=== PATIENT | female | born 1955 | race African-American/Black ===

== ENCOUNTER 2018-07-08 13:17 | Inpatient (IN) | payer OTHER ==
[~2018-07-08] VITALS: Ht 167.6 cm; Wt 73.5 kg
[2018-07-27] MEDS ORDERED: [UNRECOGNIZED DRUG - OTHER] (10:33)
[2018-07-27] MEDS ORDERED: LASIX40 MG PO (10:35)
[2018-07-27] MEDS ORDERED: LEVOXYL50 MCG PO (10:35)
[2018-07-27] MEDS ORDERED: LEVSIN/ANASP0.125 MG PO (10:35)
[2018-07-27] MEDS ORDERED: ALPRAZOLAM (10:36)
[2018-07-27] MEDS ORDERED: ZANAFLEX4 MG PO (10:37)
[2018-07-27] MEDS ORDERED: VITAMIN D31000 UNI2 PO (10:38)
[2018-07-27] MEDS ORDERED: OMEGA-3100 MG PO (10:38)
[2018-07-27] MEDS ORDERED: FOLATE0.4 MG PO (10:39)
[2018-07-27 12:13] LABS: CALC OSMOLALITY 281 mosm/kg (275-300); CALCIUM 8.8 mg/dL (8.5-10.1); CARBON DIOXIDE 29.5 mmol/L (21.0-32.0); CHLORIDE - SERUM 101 mmol/L (98-107); CREATININE - SERUM 0.8 mg/dL (0.6-1.3); GLUCOSE 102 mg/dL (74-106); POTASSIUM - SERUM 3.3 mmol/L (3.5-5.1); SODIUM 141 mmol/L (136-145); UREA NITROGEN 15 mg/dL (7-18); eGFR NON AFRICAN AMERICAN 77 mL/min (90-120)
[2018-07-27 12:17] LABS: BASOPHILS 0.3 % (0-2); EOSINOPHILS 0.5 % (0-7); HEMATOCRIT 38.2 % (36.0-48.0); IMMATURE GRANULOCYTES 0.3 % (0-5); LYMPHOCYTES 15.6 % (15-50); MCH 30.5 pg (26.0-34.0); MCV 89.7 fL (80.0-100.0); MONOCYTES 1.8 % (2-11); NEUTROPHILS 81.5 % (40-80); PLATELET COUNT 295 10x3/uL (130-400); RBC 4.26 10x6/uL (4.00-5.40); RDW 13.1 % (11.5-14.5); WBC 6.2 10x3/uL (4.8-10.8)
[2018-07-27 12:24] LABS: APTT 25.7 SECONDS (22.8-39.4); INR 0.98 (0.85-1.17); PROTIME 12.5 SECONDS (11.6-15.0)
[2018-07-27 12:42] LABS: APPEARANCE CLEAR (CLEAR); BILIRUBIN NEGATIVE (NEGATIVE); COLOR STRAW (YELLOW); GLUCOSE NEGATIVE (NEGATIVE); KETONE NEGATIVE (NEGATIVE); NITRITE NEGATIVE (NEGATIVE); PROTEIN NEGATIVE (NEGATIVE); UROBILINOGEN NORMAL (NORMAL)
[2018-07-27 12:45] LABS: BACTERIA FEW /hpf (NONE SEEN); EPITHELIAL CELLS 0-5 /hpf (0-5); RED CELLS - URINE NONE SEEN /hpf (0-5); WHITE CELLS - URINE 0-5 /hpf (0-5)
[2018-08-02] MEDS ORDERED: XANAX1 MG PO (07:48)
[2018-08-02 07:51] VITALS: BP 149/68; BMI 26.2
--- NOTE | 2018-08-02 10:06 | NUR ---
PLASMA BLADE SET 6/8 BOVIE PAD RIGHT THIGH [id number] EXP 09/24/19
--- NOTE | 2018-08-02 13:13 | NUR ---
RECEIVED PT FROM NIRAJ COBURN, PT IS ASLEEP AND EASILY AWAKENED TO TRANSFER TO BED IN ROOM. PT TRANSFERRED WITH MINIMAL ASSIST, NO NEEDS VOICED, WENT RIGHT BACK TO SLEEP, POST OP VITALS COMPLETED IN HOLDING, CL IN REACH BED IN LOWEST POSITION, REPORT GIVEN TO NIRAJ ANDERS
--- NOTE | 2018-08-02 18:15 | OP ---
PATIENT NAME: SHIREEN PUGA MEDICAL RECORD: [id number] :57 LOCATION:D[facility]33 ADMISSION DATE:08/02/18 SURGEON: JOSEPH TOVAR DO DATE OF OPERATION: 08/02/2018 PROCEDURE PERFORMED: Right total knee arthroplasty. PREOPERATIVE DIAGNOSES: Right knee osteoarthritis with valgus deformity. POSTOPERATIVE DIAGNOSES: Right knee osteoarthritis with valgus deformity. INDICATIONS: Ms. Puga is a 62-year-old female who has tried injections and bracing for her right knee valgus deformity. Says she was tired of dealing with the pain and collapses on her and gives her a lot of pain, especially after sitting for a long time. She was informed of the risks of surgery including infection, bleeding, damage to nerves, especially the peroneal nerve due to the valgus deformity and need for further surgery, fracture. She was informed of risk of blood clots and even , and she signed the consent. SURGEON: Joseph Tovar DO STATISTICAL MACHINE SERVICER: I was assisted by Jian Ba, advanced nurse practitioner. He assisted with closing and also holding retractors. DESCRIPTION OF PROCEDURE: The patient was given a block by anesthesia in the preoperative area and taken to the operative suite, laid in the supine position, given general anesthetic and LMA was placed. She was given 80 mg of gentamicin and a gram of Ancef preoperatively. The right lower extremity was then prepped and draped in sterile fashion. A timeout was performed. Everyone was in agreeance with the correct side, site, patient, and procedure. Incision was then marked out on the anterior knee and covered in Ioban. Then, the incision was then made down to the capsule itself with a 10-blade scalpel and the fresh 10-blade scalpel was used to do a medial parapatellar approach to the knee. The patella was then everted after some of the fat pad was removed and a part of the patella was removed with a saw, leaving 13-mm of bone, and then the knee was flexed up. Hohmanns were placed and the intramedullary canal was opened with a drill and then the distal femur. A guide was used to cut the distal femur. Once this femur was cut, the tibia was cut and the menisci were removed with the knee in extension, did not appear to have enough room for the extension block, so more distal femur was cut as well as proximal tibia. The distal femur fit well. Also, released the posterior lateral capsule off of the back of the knee, up the tibia rather this opened up well and the extension block fit very well. Once this was performed, the knee was flexed up and then the distal femur was measured to be a 65. A 4-in-1 cutting block was put on to ensure there was no notching. Once the cutting block was put on, the femur was cut. The bone was removed and then the trial was put on. The tibia was floated in, ranged and marked rotation. The patella was drilled. The lug holes were then drilled on the femur as well. The tibia was then prepared and sized to be 63. A cruciate tibia was drilled and punched, and then cement was placed on it, and then the tibia, and impacted in place. Excess cement was removed. The femur was then impacted in place with a press fit femur. Once the femur was impacted in place, the knee was brought into extension and the patella was prepared for the cement. Cement was put into the peg holes and on the patella prosthesis. This was squeezed and excess cement was removed. This was held into place. The knee was irrigated. The patient was given a gram of TXA prior to start of the case and a OPERATIVE REPORT [id number] SHIREEN PUGA at this point as well. After the knee was irrigated and bleeders were coagulated as the cement dried. Once cement dried, trialed with a 10 poly and a 12 poly, the 12 poly fit well with good extension, had good medial and lateral stability in extension and flexion. The knee was also not in valgus anymore, was straight and vancomycin powder as well as tobramycin powder and Surgicel powder was placed into the wound. The capsule was then closed with #2 Ethibond in a ytyzjp-xk-uamwa fashion and then 2-0 Vicryl in an inverted interrupted fashion on the skin. A ZipLine was placed on the skin, Adaptic, 4 x 4s, ABD, Webril, and Merlin wrap was then placed on the knee. ALTAGRACIA hose stocking placed up to the knee and the patient was awakened and taken to recovery in stable condition. Blood loss was approximately 200 mL. COMPLICATIONS: None. TRANSINT:[id number] Voice Confirmation ID: [id number] DOCUMENT ID: [id number] JOSEPH TOVAR DO at 1815 CC: UMA GARY [id number] DICTATION DATE: 08/02/18 1118 PLASTIC HOSPITAL PRODUCTS ASSEMBLER: 08/02/18 1524 ADM IN [facility] [address] [id number]
--- NOTE | 2018-08-02 18:50 | NUR ---
PATIENT IN BED WITH EYES CLOSED RESTING QUIETLY. IV INTACT. DAO INTACT. SCDS AND ALTAGRACIA ON. NO COMPLAINTS. FAMILY AT BEDSIDE. CALL LIGHT WITHIN REACH.
--- NOTE | 2018-08-02 20:20 | NUR ---
PT RESTING IN BED. ALERT AND ORIENTED. NO SIGNS OF DISTRESS. BREATHING EVEN AND UNLABORED. PT STATES NO PROBLEMS AT THIS TIME. IV SITE RT FA DRESSING CLEAN DRY AND INTACT. NO SIGNS OF INFECTION. BOWEL SOUNDS ACTIVE. SKIN CLEAN DRY AND INTACT. RT KNEE DRESSING CLEAN DRY AND INTACT. ALTAGRACIA HOSE ON RT LOWER LEG. WILL CONTINUE PLAN OF CARE. CALL LIGHT IN REACH. BED LOWERED AND LOCKED. BED RAILS UP X2.
[2018-08-02 20:38] VITALS: BMI 26.2
[2018-08-02 21:22] VITALS: BP 118/68
[2018-08-03 00:19] VITALS: BP 131/56
--- NOTE | 2018-08-03 03:03 | NUR ---
I have reviewed this patient and I concur with the Shift Assessment completed by the Licensed Practical Nurse today this shift.
--- NOTE | 2018-08-03 04:10 | NUR ---
PT STATES DILAUID IS GIVING HER HIVES. LOOKED AT PT SKIN ALL OVER NEVER MAURICIO HIVES. BUT PT STATES HER SKIN IS HOT AND SHE WANTS ME TO LET DR. TOVAR KNOW IN THE MORNING NO MORE DILAUDID. PT STATES DOES HELP WITH PAIN BUT MAKES HER HOT. WILL GIVE VISTERIL PER EMAR.
[2018-08-03 05:05] VITALS: BP 124/64
[2018-08-03 06:03] LABS: HEMATOCRIT 30.5 % (36.0-48.0); HEMOGLOBIN 9.8 g/dL (12-16); MCH 29.5 pg (26.0-34.0); MCHC 32.1 g/dL (31.0-37.0); MCV 91.9 fL (80.0-100.0); MEAN PLATELET VOLUME 8.9 fL (7.4-10.4); RBC 3.32 10x6/uL (4.00-5.40); RDW 12.9 % (11.5-14.5); WBC 8.4 10x3/uL (4.8-10.8)
[2018-08-03 10:16] VITALS: BP 157/68
[2018-08-03 12:48] VITALS: BP 159/68
--- NOTE | 2018-08-03 14:19 | NUR ---
PT RESTING IN BED. NO SIGNS OF DISTRESS. IV TO RIGHT FORARM PATENT NO REDNESS OR TENDERNESS. HAS ZOYA WRAP TO RIGHT KNEE. COMPLAINS OF PAIN. MEDICATIONS GIVEN. DENIES ANY FUTHER NEED AT THIS TIME. CALL LIGHT IN REACH. BED LOW POSITION. FAMILY AT BEDSIDE AT THIS TIME.
[2018-08-03 14:21] VITALS: Ht 167.6 cm; Wt 73.5 kg
--- NOTE | 2018-08-03 14:40 | NUR ---
LYING IN BED. PT IS WITHOUT NEEDS.CALL LIGHT IN REACH
[2018-08-03 15:46] VITALS: BP 179/83
--- NOTE | 2018-08-03 19:30 | NUR ---
REC'D IN BED AWAKE AND ALERT. RESP EVEN AND UNLABORED WITH NO DISTRESS NOTED. CAN EXPRESS NEEDS AND WANTS. C/O LEFT KNEE PAIN. ASSESSMENT COMPLETED. C/L IN REACH AT BEDSIDE.
--- NOTE | 2018-08-03 20:51 | NUR ---
MEDICATED WITH DEMEROL AND BENADRYL AT THIS TIME FOR C/O PAIN RATING 8/10 ON PAIN SCALE AND ITCHING. C/L IN REACH AT BEDSIDE.
[2018-08-03 22:12] VITALS: BP 145/84
[2018-08-04 00:45] VITALS: BP 154/57
--- NOTE | 2018-08-04 03:42 | NUR ---
I have reviewed this patient and I concur with the Shift Assessment completed by the Licensed Practical Nurse today this shift.
[2018-08-04 05:12] VITALS: BP 151/67
[2018-08-04 05:34] LABS: HEMATOCRIT 30.3 % (36.0-48.0); HEMOGLOBIN 10.1 g/dL (12-16); MCH 29.8 pg (26.0-34.0); MCHC 33.3 g/dL (31.0-37.0); MEAN PLATELET VOLUME 9.3 fL (7.4-10.4); RBC 3.39 10x6/uL (4.00-5.40); RDW 12.9 % (11.5-14.5); WBC 10.1 10x3/uL (4.8-10.8)
[2018-08-04 05:52] LABS: MCV 89.4 fL (80.0-100.0)
[2018-08-04 08:35] VITALS: BP 150/72
--- NOTE | 2018-08-04 09:30 | NUR ---
PATIENT UP WITH PT. NO COMPLAINTS AT THIS TIME. REQUESTED AND RECEIVED PRUNE JUICE TO HAVE A BM. WCTM
--- NOTE | 2018-08-04 11:28 | MORECARE ---
CASE MANAGEMENT DISCHARGE SUMMARY PATIENT: SHIREEN ROMERO UNIT: [id number] ADM DATE: 08/02/18 AGE: 62 : 57 SEX: F ROOM/BED: D.[facility] AUTHOR: TL MAHER PHYSICIAN: REFERRING PHYSICIAN: CESAR TOVAR DO DATE OF SERVICE: 08/04/18 Discharge Plan Patient Name: SHIREEN ROMERO Facility: [facility]:[place] : 1955 Planned Disposition: Home Anticipated Discharge Date: Discharge Date: Expected LOS: Initial Reviewer: [email or web address] Initial Review Date: 08/04/2018 Generated: 08/04/18 12:28 pm DCPIA - Discharge Planning Initial Assessment Updated by [email or web address]: Brionna Godoy on 08/04/18 11:23 am * Is the patient Alert and Oriented? Yes * How many steps to enter\exit or inside your home? 6/0 * PCP Dr. Keys * Pharmacy [facility] * Preadmission Environment Home with Family * ADLs Independent * Equipment Bedside Commode Other Walker * Other Equipment CPM Ice machine * List name and contact numbers for known caregivers / representatives who currently or will assist patient after discharge: Margarito Camacho - grand daughter - [phone] * Verbal permission to speak to the caregivers and representatives has been obtained from the patient. Yes * Community resources currently utilized None * Additional services required to return to the preadmission environment? Yes * Can the patient safely return to the preadmission environment? Yes * Has this patient been hospitalized within the prior 30 days at any hospital? No External Providers External Provider: [facility] Next Contact Date: Service Request Date: Service Type: Resolution: Reviewer: Comments: Patient Name: SHIREEN ROMERO Page 39284 at 1128 All edits/amendments must be made on the electronic document DICTATION DATE: 08/04/181127 SOCIAL MEDIA MARKETING ANALYST: ROM 08/04/18 1128 RPT#: [id number] DC DATE: STATUS: [place] [address] END OF REPORT
--- NOTE | 2018-08-04 11:35 | MORECARE ---
CASE MANAGEMENT DISCHARGE SUMMARY PATIENT: SHIREEN ROMERO UNIT: [id number] ADM DATE: 08/02/18 AGE: 62 : 57 SEX: F ROOM/BED: D.2233 AUTHOR: GUNNAR,DOC PHYSICIAN: REFERRING PHYSICIAN: CESAR TOVAR DO DATE OF SERVICE: 08/04/18 Discharge Plan Patient Name: SHIREEN ROMERO Facility: [facility]:[place] : 1955 Planned Disposition: Home Anticipated Discharge Date: Discharge Date: Expected LOS: Initial Reviewer: [email or web address] Initial Review Date: 08/04/2018 Generated: 08/04/18 12:35 pm Comments DCP- Discharge Planning Updated by [email or web address]: Brionna Godoy on 08/04/18 10:[address] Patient Name: SHIREEN ROMERO Admission Status: Elective Accout number: [id number] Admission Date: 08-02-2018 : 1955 Admission Diagnosis: Attending: CESAR TOVAR Current LOS: 2 Anticipated DC Date: Planned Disposition: Home Primary Insurance: [facility] Discharge Planning Comments: CM met with patient to discuss discharge planning/needs, she is alone in the room. She states she lives with her grand daughter. Her grand daughter will be driving her to and from outpatient PT. She would like to have it at [facility]. I called and spoke to Gen and her first visit will me Wednesday at 9am, clinical faxed. Patient given copy of order and time to be there. She states prior to admission she was independent with all ADL's and AIDL's. She states she already has her BSC, CPM, ice machine and walker. Declines other needs. CM will continue to follow and assist with discharge planning/needs. Vehicle Window Tinter: Brionna Godoy DCPIA - Discharge Planning Initial Assessment Updated by [email or web address]: Brionna Godoy on 08/04/18 11:23 am * Is the patient Alert and Oriented? Yes * How many steps to enter\exit or inside your home? 6/0 * PCP Dr. Keys * Pharmacy [facility] on [address] * Preadmission Environment Home with Family * ADLs Independent * Equipment Bedside Commode Other Walker * Other Equipment CPM Ice machine * List name and contact numbers for known caregivers / representatives who currently or will assist patient after discharge: Margarito Camacho - grand daughter - [phone] * Verbal permission to speak to the caregivers and representatives has been obtained from the patient. Yes * Community resources currently utilized None * Additional services required to return to the preadmission environment? Yes * Can the patient safely return to the preadmission environment? Yes * Has this patient been hospitalized within the prior 30 days at any hospital? No Last DP export: 08/04/18 10:28 am Patient Name: SHIREEN ROMERO Page 75225 at 1135 All edits/amendments must be made on the electronic document DICTATION DATE: 08/04/18 113 SALES RECRUITMENT SPECIALIST: ROM 08/04/181134 RPT#: [id number] DC DATE: STATUS: ADM IN [facility] [address] [place] [address] END OF REPORT
[2018-08-04 12:11] VITALS: BP 141/68
[2018-08-04 13:16] LABS: APPEARANCE HAZY (CLEAR); BILIRUBIN NEGATIVE (NEGATIVE); COLOR YELLOW (YELLOW); GLUCOSE NEGATIVE (NEGATIVE); KETONE NEGATIVE (NEGATIVE); NITRITE NEGATIVE (NEGATIVE); PROTEIN NEGATIVE (NEGATIVE); UROBILINOGEN NORMAL (NORMAL)
[2018-08-04 16:08] VITALS: BP 159/73
[2018-08-04 21:34] VITALS: BP 141/55
[2018-08-05 01:25] VITALS: BP 106/59
--- NOTE | 2018-08-05 02:49 | NUR ---
I have reviewed this patient and I concur with the Shift Assessment completed by the Licensed Practical Nurse today this shift.
[2018-08-05 05:27] VITALS: BP 120/49
--- NOTE | 2018-08-05 07:38 | NUR ---
AAOX4. ON ROOM AIR, NO IV ACCESS. CURRENTLY ON CPM. ZOYA BANDAGE TO RIGHT KNEE, ALTAGRACIA ANDRADE PRESENT. C/O PAIN 11/12. ADMINISTERED PRN PO PAIN MEDICATION, +2 PULSE AND CAP REFILL OF LESS THAN 3 SEC, FAMILY MEMBER PRESENT IN ROOM, DENIES ANY OTHER NEEDS OR DISCOMFORTS, BED LOWERED AND LOCKED, CALL LIGHT WITHIN REACH. CPOC
[2018-08-05 08:17] VITALS: BP 144/56
[2018-08-05] MEDS ORDERED: VISTARIL50 MG PO (08:39)
[2018-08-05] MEDS ORDERED: Demerol PO (08:39)
[2018-08-05] MEDS ORDERED: ELIQUIS2.5 MG PO (08:40)
[2018-08-05] MEDS ORDERED: KEFLEX500 MG PO (08:40)
--- NOTE | 2018-08-05 09:15 | MORECARE ---
CASE MANAGEMENT DISCHARGE SUMMARY PATIENT: SHIREEN ROMERO UNIT: [id number] ADM DATE: 08/02/18 AGE: 62 : 57 SEX: F ROOM/BED: D.2233 AUTHOR: GUNNARDOC PHYSICIAN: REFERRING PHYSICIAN: CESAR TOVAR DO DATE OF SERVICE: 08/05/18 Discharge Plan Patient Name: SHIREEN ROMERO Facility: [facility]:[place] : 1955 Planned Disposition: Home Anticipated Discharge Date: Discharge Date: Expected LOS: Initial Reviewer: [email or web address] Initial Review Date: 08/04/2018 Generated: 08/05/18 10:15 am Comments DCP- Discharge Planning Updated by [id number]: Brionna Godoy on 08/05/18 8:[address] Patient Name: SHIREEN ROMERO Encounter No: [id number] : 1955 Primary Insurance: [place] [employer] [facility] Anticipated DC Date: Planned Disposition: Home External Planned Provider: : DCP follow-up note: Patient and family in agreement with discharge plan. No changes to plan. Case management will follow and assist as needed. Brionna Godoy DCP- Discharge Planning Updated by [id number]: Brionna Godoy on 08/04/18 10:[address] Patient Name: SHIREEN ROMERO Admission Status: Elective Accout number: [id number] Admission Date: 08-02-2018 : 1955 Admission Diagnosis: Attending: CESAR TOVAR Current LOS: 2 Anticipated DC Date: Planned Disposition: Home Primary Insurance: [employer] [facility] Discharge Planning Comments: CM met with patient to discuss discharge planning/needs, she is alone in the room. She states she lives with her grand daughter. Her grand daughter will be driving her to and from outpatient PT. She would like to have it at [facility]. I called and spoke to Gen and her first visit will me Wednesday at 9am, clinical faxed. Patient given copy of order and time to be there. She states prior to admission she was independent with all ADL's and AIDL's. She states she already has her BSC, CPM, ice machine and walker. Declines other needs. CM will continue to follow and assist with discharge planning/needs. Edging Machine Setter: Brionna Godoy DCPIA - Discharge Planning Initial Assessment Updated by [email or web address]: Brionna Godoy on 08/04/18 11:23 am * Is the patient Alert and Oriented? Yes * How many steps to enter\exit or inside your home? 6/0 * PCP Dr. Keys * Pharmacy [facility] on [address] * Preadmission Environment Home with Family * ADLs Independent * Equipment Bedside Commode Other Walker * Other Equipment CPM Ice machine * List name and contact numbers for known caregivers / representatives who currently or will assist patient after discharge: Margarito Camacho - grand daughter - [phone] * Verbal permission to speak to the caregivers and representatives has been obtained from the patient. Yes * Community resources currently utilized None * Additional services required to return to the preadmission environment? Yes * Can the patient safely return to the preadmission environment? Yes * Has this patient been hospitalized within the prior 30 days at any hospital? No Last DP export: 08/04/18 10:35 am Patient Name: SHIREEN ROMERO Page 09121 at 0915 All edits/amendments must be made on the electronic document DICTATION DATE: 08/05/18914 ENVIRONMENTAL CONSULTANT: ROM 08/05/18914 RPT#: [id number] DC DATE: STATUS: ADM IN [facility] [address] [place] [address] END OF REPORT
--- NOTE | 2018-08-05 10:05 | NUR ---
DRESSING CHANGE COMPLETE PER ORDER. SLIGHT REDNESS AND WARMTH TO LATERAL SIDE OF RIGHT KNEE, NO DRAINAGE TO INCISION. DENIES ANY NEEDS OR DISCOMFORTS, BED LOWERED AND LOCKED, CALL LIGHT WITHIN REACH. DISCHARGE IN PROCESS.
--- NOTE | 2018-08-05 10:47 | NUR ---
DISCHRAGE INSTRUCTIONS GIVEN. VERBALIZES UNDERSTANDING. PROVIDED DRESSING CHANGING MATERIAL AND ALTAGRACIA HOSE PER ORDER. DENIES ANY CURRENT CONCERNS OR QUESTIONS. TRANSPORTED OFF UNIT VIA WHEELCHAIR WITH FAMILY.
--- NOTE | 2018-08-05 13:58 | MORECARE ---
CASE MANAGEMENT DISCHARGE SUMMARY PATIENT: SHIREEN ROMERO UNIT: [id number] ADM DATE: 08/02/18 AGE: 62 : 57 SEX: F ROOM/BED: D.2233 AUTHOR: GUNNARDOC PHYSICIAN: REFERRING PHYSICIAN: CESAR TOVAR DO DATE OF SERVICE: 08/05/18 Discharge Plan Patient Name: SHIREEN ROMERO Facility: [facility]:[place] : 1955 Planned Disposition: Home Anticipated Discharge Date: Discharge Date: 08/05/2018 Expected LOS: 0 Initial Reviewer: [email or web address] Initial Review Date: 08/04/2018 Generated: 08/05/18 2:58 pm Comments DCP- Discharge Planning Updated by [email or web address]: Brionna Godoy on 08/05/18 8:[address] Patient Name: SHIREEN ROMERO Encounter No: [id number] : 1955 Primary Insurance: [employer] [facility] Anticipated DC Date: Planned Disposition: Home External Planned Provider: : DCP follow-up note: Patient and family in agreement with discharge plan. No changes to plan. Case management will follow and assist as needed. Brionna Godoy DCP- Discharge Planning Updated by [id number]: Brionna Godoy on 08/04/18 10:[address] Patient Name: SHIREEN ROMERO Admission Status: Elective Accout number: [id number] Admission Date: 08-02-2018 : 1955 Admission Diagnosis: Attending: CESAR TVOAR Current LOS: 2 Anticipated DC Date: Planned Disposition: Home Primary Insurance: [employer] O Discharge Planning Comments: CM met with patient to discuss discharge planning/needs, she is alone in the room. She states she lives with her grand daughter. Her grand daughter will be driving her to and from outpatient PT. She would like to have it at [facility]. I called and spoke to Gen and her first visit will me Wednesday at 9am, clinical faxed. Patient given copy of order and time to be there. She states prior to admission she was independent with all ADL's and AIDL's. She states she already has her BSC, CPM, ice machine and walker. Declines other needs. CM will continue to follow and assist with discharge planning/needs. Structural Steel Ironworker: Brionna Godoy DCPIA - Discharge Planning Initial Assessment Updated by [email or web address]: Brionna Godoy on 08/04/18 11:23 am * Is the patient Alert and Oriented? Yes * How many steps to enter\exit or inside your home? 6/0 * PCP Dr. Keys * Pharmacy [facility] on [address] * Preadmission Environment Home with Family * ADLs Independent * Equipment Bedside Commode Other Walker * Other Equipment CPM Ice machine * List name and contact numbers for known caregivers / representatives who currently or will assist patient after discharge: Margarito Camacho - grand daughter - [phone] * Verbal permission to speak to the caregivers and representatives has been obtained from the patient. Yes * Community resources currently utilized None * Additional services required to return to the preadmission environment? Yes * Can the patient safely return to the preadmission environment? Yes * Has this patient been hospitalized within the prior 30 days at any hospital? No Last DP export: 08/05/18 8:15 am Patient Name: SHIREEN ROMERO Page 96857 at 1358 All edits/amendments must be made on the electronic document DICTATION DATE: 08/05/18 135 ADULT PROBATION OFFICER: ROM 08/05/18 1358 RPT#: [id number] DC DATE:08/05/18 STATUS: DIS IN [address] [place] [address] END OF REPORT
== END 2018-08-05 11:31 | disposition home or self-care (01) | DRG 470 ==
LOC: D.SDCHOLD 07-27 10:00 → D.MS 08-02 07:05 → D.SDCHOLD 08-02 07:05 → D.MS 08-02 12:54
PROVIDERS: ADMIT Orthopaedic Surgery; ATTEND Orthopaedic Surgery
PROC: 0SRC0J9 Replacement of Right Knee Joint with Synthetic Substitute, Cemented, Open Approach (ICD-10-PCS; principal; 2018-08-02 08:30)
DX: M17.11 Unilateral primary osteoarthritis, right knee (principal); J45.909 Unspecified asthma, uncomplicated

== ENCOUNTER → 2018-07-18 12:02 | Outpatient (CLI) | payer OTHER ==
[~2018-07-18 12:02] MED LIST: ALPRAZOLAM; FOLATE0.4 MG PO; LASIX40 MG PO; LEVOXYL50 MCG PO; LEVSIN/ANASP0.125 MG PO; OMEGA-3100 MG PO; VITAMIN D31000 UNI2 PO; XANAX1 MG PO; ZANAFLEX4 MG PO; [UNRECOGNIZED DRUG - OTHER]
[2018-08-03 14:21] VITALS: BMI 26.1
== END | disposition home or self-care (01) ==
LOC: D.LABREF 12:02
PROVIDERS: ATTEND Orthopaedic Surgery
DX: M17.12 Unilateral primary osteoarthritis, left knee (principal)

== ENCOUNTER → 2018-07-18 18:04 | Outpatient (CLI) | payer OTHER ==
[2018-08-03 14:21] VITALS: BMI 26.1
== END | disposition home or self-care (01) ==
LOC: D.LABREF 18:04
PROVIDERS: ATTEND Orthopaedic Surgery
DX: M17.12 Unilateral primary osteoarthritis, left knee (principal)

== ENCOUNTER 2018-12-15 15:04 | Inpatient (IN) | payer OTHER ==
[~2018-12-15] VITALS: Ht 167.6 cm; Wt 63.5 kg
[~2018-12-15 15:04] MED LIST changes: +Demerol PO; +ELIQUIS2.5 MG PO; +KEFLEX500 MG PO; -LEVOXYL50 MCG PO; +LEVOXYL75 MCG PO; -LEVSIN/ANASP0.125 MG PO; +LEVSINEX/LEV0.375 M1 PO; +VISTARIL50 MG PO
[2019-01-23] MEDS ORDERED: DUEXIS 800-26.1 EACH PO (09:26)
[2019-01-23] MEDS ORDERED: REMERON30 MG PO (09:29)
[2019-01-23 10:15] LABS: BASOPHILS 0.8 % (0-2); EOSINOPHILS 6.6 % (0-7); LYMPHOCYTES 36.3 % (15-50); MCH 29.4 pg (26.0-34.0); MCHC 33.3 g/dL (31.0-37.0); MCV 88.2 fL (80.0-100.0); MEAN PLATELET VOLUME 8.7 fL (7.4-10.4); MONOCYTES 7.2 % (2-11); NEUTROPHILS 49.1 % (40-80); PLATELET COUNT 268 10x3/uL (130-400); RBC 4.08 10x6/uL (4.00-5.40); RDW 12.5 % (11.5-14.5); WBC 4.9 10x3/uL (4.8-10.8)
[2019-01-23 10:22] LABS: CALC OSMOLALITY 280 mosm/kg (275-300); CALCIUM 9.2 mg/dL (8.5-10.1); CARBON DIOXIDE 30.3 mmol/L (21.0-32.0); CHLORIDE - SERUM 105 mmol/L (98-107); CREATININE - SERUM 0.7 mg/dL (0.6-1.3); GLUCOSE 87 mg/dL (74-106); INR 0.98 (0.85-1.17); POTASSIUM - SERUM 3.4 mmol/L (3.5-5.1); PROTIME 12.5 SECONDS (11.6-15.0); SODIUM 142 mmol/L (136-145); UREA NITROGEN 11 mg/dL (7-18); eGFR NON AFRICAN AMERICAN 90 mL/min (90-120)
[2019-01-23 10:23] LABS: APTT 28.9 SECONDS (22.8-39.4)
[2019-01-23 11:47] LABS: APPEARANCE CLEAR (CLEAR); BILIRUBIN NEGATIVE (NEGATIVE); COLOR YELLOW (YELLOW); GLUCOSE NEGATIVE (NEGATIVE); KETONE NEGATIVE (NEGATIVE); NITRITE NEGATIVE (NEGATIVE); PROTEIN NEGATIVE (NEGATIVE); SPECIFIC GRAVITY 1.015 (1.005-1.020); UROBILINOGEN NORMAL (NORMAL)
[2019-01-25] VITALS (13 sets, daily range): BP systolic 128–173; BP diastolic 63–116; BMI 25.8; BMI 22.6
--- NOTE | 2019-01-25 09:57 | NUR ---
MEETS ANESTHESIA DISCHARGE CRITERIA
[2019-01-25] MEDS ORDERED: ELIQUIS2.5 MG PO (11:38)
[2019-01-25] MEDS ORDERED: DILAUDID4 MG PO (11:38)
[2019-01-25] MEDS ORDERED: KEFLEX500 MG PO (11:38)
[2019-01-25] MEDS ORDERED: VISTARIL50 MG PO (11:39)
--- NOTE | 2019-01-25 12:06 | OP ---
PATIENT NAME: SHIREEN PUGA MEDICAL RECORD: [id number] :57 LOCATION:D.[facility]9 ADMISSION DATE:01/25/19 SURGEON: JOSEPH TOVAR DO DATE OF OPERATION: 01/25/2019 PROCEDURE PERFORMED: Left total knee arthroplasty. PREOPERATIVE DIAGNOSIS: Left knee osteoarthritis. POSTOPERATIVE DIAGNOSIS: Left knee osteoarthritis. INDICATIONS: Ms. Puga is a 63-year-old female, who has had severe valgus deformity of her left knee and osteoarthritis. She has tried all manner of nonoperative treatment to no avail. She is tired of dealing with the pain and wanted something done surgically. She had the right knee done some months ago and was aware of the risks including infection, bleeding, damage to nerves and vessels, fracture, failure of implants, blood clots, and even , and she signed the consent. SURGEON: Joseph Tovar DO DECK HAND: Lissette Anthony, certified surgical rn first assist. DESCRIPTION OF PROCEDURE: The patient received a block by anesthesia in the preoperative area. He was taken to the operative suite, laid in supine position, given general anesthetic and LMA was placed. She was given a gram of Ancef and 80 mg of gentamicin. The left lower extremity was then prepped and draped in sterile fashion. Time-out was performed. Everybody was in agreement with correct side, site, patient and procedure. The knee was then marked out and wrapped in Ioban. The incision then began down the anterior aspect of the knee. Careful dissection was made down to the capsule. A fresh 10 blade was then used to do a medial parapatellar approach to the capsule. Part of the fat pad was removed and the patella was everted and milled down to a 12 thickness and then sized for a 31 patella. The knee was then flexed up. The femoral canal was entered. Distal femur was cut off the guide and the proximal tibia as well measuring up the lateral side of the tibial plateau due to the valgus deformity. This was removed as well as the menisci and a 10 extension block fit well. Any bleeding was coagulated with the Aquamantys throughout the procedure. The knee was then flexed up and the femur was sized to a 65 identical to the other side. The 4-in-1 cutting block was then used to cut the femur. This was cut and then the excess bone was removed. Once the bone was removed, trial was put on and the tibia was floated in and rotation was marked. The lug holes were then drilled in the femur as well as in the patella for the implant and then the tibia was prepped. It was sized to be a 67. It was drilled and punched. An extra hole was put in the tibia for cement mantle. The cement was then mixed, placed in the tibia and on the implant, impacted in place. Excess cement was removed. The femur was then impacted on. The 10 poly was put in between and brought to extension, and the patella was put on cement in the holes and on the poly and this was squeezed into place and held. The excess cement was removed. We then removed any excess cement that remained on the tibia, and the knee was irrigated with a liter of normal saline and Bactisure, then another liter of normal saline. Any bleeding was coagulated throughout the time with Aquamantys. She was given a gram of TXA prior to starting. Once the cement dried, we sized a 12. The 12 E poly was put in with an anterior stabilized bearing and locked into place. This fit very well. She had good stability in extension and OPERATIVE REPORT [id number] SHIREEN PUGA flexion and medial and lateral stability. The knee was then irrigated again, and vancomycin and tobramycin powder placed in the knee as well as Charley, and then the capsule was closed with #2 Ethibond in a [id number] fashion. The skin was then closed with 2-0 Vicryl in an inverted interrupted fashion and ZipLine placed on the knee. Adaptic, 4 x 4's, ABD, Webril, Merlin wrap were then placed on the knee. ALTAGRACIA hose stocking up to the knee. She was then awakened and taken to recovery in stable condition. Blood loss approximately 150 mL. Complications none. TRANSINT:[id number] Voice Confirmation ID: [id number] DOCUMENT ID: [id number] JOSEPH TOVAR DO at 1206 CC: [id number] DICTATION DATE: 01/25/19 09 INSPECTOR HAIRSPRING: 01/25/19 1037 [facility] [address] [place] [address]
--- NOTE | 2019-01-25 18:10 | NUR ---
RESTING IN BED. PLACED ON CPM. DENIES NEEDS. BED LOW. CALL MUNOZ AND PERSONAL ITEMS IN REACH.
[2019-01-26 01:16] VITALS: BP 114/70
--- NOTE | 2019-01-26 02:41 | NUR ---
PT RESTING IN BED. EYES CLOSED. NO SIGNS OF DISTRESS. BREATHING EVEN AND UNLABORED. IV SITE RT FA DRESSING CLEAN DRY AND INTACT. NO SIGNS OF INFECTION. BOWEL SOUNDS ACTIV. 1LO2 NASAL CANNLA. LT KNEE DRESSING CLEAN DRY AND INTACT. ALTAGRACIA ANDRADE AND SCDS ON. WILL CONTINUE PLAN OF CARE. CALL LIGHT IN REACH. BED LOWERED AND LOCKED. BED RAILS UPX2. FAMILY AT BEDSIDE.
--- NOTE | 2019-01-26 03:19 | NUR ---
I have reviewed this patient and I concur with the Shift Assessment completed by the Licensed Practical Nurse today this shift.
[2019-01-26 04:54] VITALS: BP 124/74
[2019-01-26 06:36] LABS: BASOPHILS 0.3 % (0-2); EOSINOPHILS 0.5 % (0-7); IMMATURE GRANULOCYTES 0.1 % (0-5); MCH 28.7 pg (26.0-34.0); MCHC 31.3 g/dL (31.0-37.0); MCV 91.7 fL (80.0-100.0); MEAN PLATELET VOLUME 9.5 fL (7.4-10.4); NEUTROPHILS 71.1 % (40-80); PLATELET COUNT 264 10x3/uL (130-400); RBC 3.49 10x6/uL (4.00-5.40); RDW 13.2 % (11.5-14.5); WBC 7.4 10x3/uL (4.8-10.8)
[2019-01-26 06:56] LABS: ANION GAP 9.6 mmol/L (8-16); CALCIUM 8.6 mg/dL (8.5-10.1); CARBON DIOXIDE 30.6 mmol/L (21.0-32.0); CREATININE - SERUM 0.9 mg/dL (0.6-1.3)
[2019-01-26 06:57] LABS: POTASSIUM - SERUM 4.2 mmol/L (3.5-5.1)
--- NOTE | 2019-01-26 07:27 | NUR ---
ALERT AND ORIENTED. LUNGS CLEAR BILATERALLY. HEART SOUNDS S1 AND S2 HEARD IN ALL [place]I. BOWEL SOUNDS ACTIVE X 4. DRSG TO LEFT KNEE C/D/I. USING CPM. SKIN OTHERWISE INTACT WITHOUT REDNESS. IV TO RFA PATENT WITHOUT REDNESS. DENIES NEEDS. BED LOW. CALL MUNOZ AND PERSONAL ITEMS IN REACH. WILL CONTINUE TO MONITOR.
[2019-01-26 08:48] VITALS: BP 130/61
[2019-01-26 09:52] VITALS: Ht 167.6 cm; Wt 63.5 kg
--- NOTE | 2019-01-26 10:41 | NUR ---
RESTING IN BED. DENIES NEEDS. WILL CONTINUE TO MONITOR.
--- NOTE | 2019-01-26 12:39 | NUR ---
RESTING IN BED. DENIES NEEDS. WILL CONTINUE TO MONITOR.
[2019-01-26 12:57] VITALS: BP 110/63
--- NOTE | 2019-01-26 15:20 | NUR ---
DR TOVAR ASKING IF PATIENT READY TO DISCHARGE. PATIENT STATES WILL BE READY TO GO TOMORROW AFTER BREAKFAST. DR YAP WILL PUT IN ORDER FOR TOMORROW.
--- NOTE | 2019-01-26 16:30 | NUR ---
RESTING IN BED. DENIES NEEDS. WILL CONTINUE TO MONITOR.
[2019-01-26 16:43] VITALS: BP 129/68
--- NOTE | 2019-01-26 17:50 | NUR ---
PLACED ON CPM.
--- NOTE | 2019-01-26 18:06 | NUR ---
EDUCATION PROVIDED ON USE OF CPM. DEMONSTRATED UNDERSTANDING.
[2019-01-26 19:00] VITALS: BP 173/66
[2019-01-27 01:00] VITALS: BP 163/72
--- NOTE | 2019-01-27 02:16 | NUR ---
PT RESTING IN BED. EYES CLOSED. NO SIGNS OF DISTRESS. BREATHING EVEN AND UNLABORED. IV SITE RT FA DRESSING CLEAN DRY AND INTACT. NO SIGNS OF INFECTON. SKIN CLEAN DRY AND INTACT. BOWEL SOUNDS ACTIVE. LUNG SOUNDS CLEAR. LT KNEE DRESSING CLEAN DRY AND INTACT. TEDS AND SCDS ON. WILL CONTINUE PLAN OF CARE. CALL LIGHT IN REACH. BED LOWERED AND LOCKED. BED RAILS UPX2.
--- NOTE | 2019-01-27 03:05 | NUR ---
I have reviewed this patient and I concur with the Shift Assessment completed by the Licensed Practical Nurse today this shift.
[2019-01-27 05:00] VITALS: BP 137/71
[2019-01-27 06:47] LABS: BASOPHILS 0.5 % (0-2); EOSINOPHILS 6.2 % (0-7); HEMATOCRIT 27.1 % (36.0-48.0); HEMOGLOBIN 8.7 g/dL (12-16); IMMATURE GRANULOCYTES 0.2 % (0-5); LYMPHOCYTES 22.3 % (15-50); MCH 29.2 pg (26.0-34.0); MCHC 32.1 g/dL (31.0-37.0); MCV 90.9 fL (80.0-100.0); MEAN PLATELET VOLUME 9.1 fL (7.4-10.4); MONOCYTES 9.7 % (2-11); NEUTROPHILS 61.1 % (40-80); PLATELET COUNT 220 10x3/uL (130-400); RBC 2.98 10x6/uL (4.00-5.40); WBC 6.3 10x3/uL (4.8-10.8)
[2019-01-27 07:01] LABS: ANION GAP 8.6 mmol/L (8-16); CALCIUM 8.1 mg/dL (8.5-10.1); CARBON DIOXIDE 32.2 mmol/L (21.0-32.0); CREATININE - SERUM 0.9 mg/dL (0.6-1.3); POTASSIUM - SERUM 3.8 mmol/L (3.5-5.1)
--- NOTE | 2019-01-27 07:09 | NUR ---
ALERT AND ORIENTED. LUNGS CLEAR BILATERALLY. USING INCENTIVE SPIROMETER. HEART SOUNDS S1 AND S2 HEARD IN ALL [place]I. DRSG TO LEFT KNEE C/D/I. ZOYA WRAP IN PLACE. USING CPM. STATES READY TO DISCHARGE. UNABLE TO FINISH PAPERWORK UNTIL OUTPATIENT THERAPY HAS BEEN SET UP. CASE MANAGEMENT TO SEE PATIENT THIS AM. DENIES NEEDS. BED LOW. CALL MUNOZ AND PERSONAL ITEMS IN REACH. WILL CONTINUE TO MONITOR.
[2019-01-27 08:45] VITALS: BP 197/90
--- NOTE | 2019-01-27 09:16 | NUR ---
DRSG CHANGED TO LEFT KNEE FOR DISCHARGE. NEW DRSG GIVEN TO PATIENT TO CHANGE IN 1 WEEK. EDUCATION PROVIDED. VERBALIZED UNDERSTANDING. IV REMOVED FROM RIGHT AC WITH TIP INTACT. WAITING DISCHARGE PAPERWORK.
--- NOTE | 2019-01-27 09:24 | MORECARE ---
CASE MANAGEMENT DISCHARGE SUMMARY PATIENT: SHIREEN ROMERO UNIT: [id number] ADM DATE: 01/25/19 AGE: 63 : 57 SEX: F ROOM/BED: D.2209 AUTHOR: TL MAHER PHYSICIAN: REFERRING PHYSICIAN: CESAR TOVAR DO DATE OF SERVICE: 01/27/19 Discharge Plan Patient Name: SHIREEN ROMERO Facility: [facility]:[place] : 1955 Planned Disposition: Home or Self Care Anticipated Discharge Date: Discharge Date: Expected LOS: Initial Reviewer: [email or web address] Initial Review Date: 01/25/2019 Generated: 01/27/19 10:24 am Patient Name: SHIREEN ROMERO Page 39822 at 0924 All edits/amendments must be made on the electronic document DICTATION DATE: 01/27/19923 INTERIOR HORTICULTURIST: ROM 01/27/19923 RPT#: [id number] DC DATE: STATUS: ADM IN [facility] [address] [place] [address] END OF REPORT
--- NOTE | 2019-01-27 09:31 | MORECARE ---
CASE MANAGEMENT DISCHARGE SUMMARY PATIENT: SHIREEN ROMERO UNIT: [id number] ADM DATE: 01/25/19 AGE: 63 : 57 SEX: F ROOM/BED: D.2209 AUTHOR: TL MAHER PHYSICIAN: REFERRING PHYSICIAN: CESAR TOVAR DO DATE OF SERVICE: 01/27/19 Discharge Plan Patient Name: SHIREEN ROMERO Facility: [facility]:[place] : 1955 Planned Disposition: Home or Self Care Anticipated Discharge Date: Discharge Date: Expected LOS: Initial Reviewer: [email or web address] Initial Review Date: 01/25/2019 Generated: 01/27/19 10:31 am Last DP export: 01/27/19 8:24 Patient Name: SHIREEN ROMERO Page [id number] at 0931 All edits/amendments must be made on the electronic document DICTATION DATE: 01/27/19929 HOOKER UP: ROM 01/27/19929 RPT#: [id number] DC DATE: STATUS: ADM IN [facility] [address] [place] [address] END OF REPORT
--- NOTE | 2019-01-27 09:38 | MORECARE ---
CASE MANAGEMENT DISCHARGE SUMMARY PATIENT: SHIREEN ROMERO UNIT: [id number] ADM DATE: 01/25/19 AGE: 63 : 57 SEX: F ROOM/BED: D.2209 AUTHOR: TL MAHER PHYSICIAN: REFERRING PHYSICIAN: CESAR TOVAR DO DATE OF SERVICE: 01/27/19 Discharge Plan Patient Name: SHIREEN ROMERO Facility: [facility]:[place] : 1955 Planned Disposition: Home or Self Care Anticipated Discharge Date: Discharge Date: Expected LOS: Initial Reviewer: [email or web address] Initial Review Date: 01/25/2019 Generated: 01/27/19 10:37 am DCPIA - Discharge Planning Initial Assessment Updated by [email or web address]: Loretta Mendoza on 01/27/19 9:36 am * Is the patient Alert and Oriented? Yes * How many steps to enter\exit or inside your home? * PCP ABDIRAHMAN * Pharmacy [facility] * Preadmission Environment Home with Family * ADLs Independent * Equipment Bedside Commode Rolling Walker * Other Equipment CPM ICE MACHINE * List name and contact numbers for known caregivers / representatives who currently or will assist patient after discharge: KIARRA (GRANDDAUGHTER) [phone] * Verbal permission to speak to the caregivers and representatives has been obtained from the patient. N/A * Community resources currently utilized None * Additional services required to return to the preadmission environment? Yes * Can the patient safely return to the preadmission environment? Yes * Has this patient been hospitalized within the prior 30 days at any hospital? No Last DP export: 01/27/19 8:31 Patient Name: SHIREEN ROMERO Page [id number] at 0938 All edits/amendments must be made on the electronic document DICTATION DATE: 01/27/19936 INVESTMENT BANKING ANALYST: ROM 01/27/19936 RPT#: [id number] DC DATE: STATUS: ADM IN [facility] [address] [place] [address] END OF REPORT
--- NOTE | 2019-01-27 09:44 | NUR ---
DISCHARGE EDUCATION PROVIDED BOTH WRITTEN AND VERBAL. VERBALIZED UNDERSTANDING. DENIES FURTHER QUESTIONS. PATIENT DISCHARGED HOME WITH DAUGHTER WITH ALL BELONGINGS.
--- NOTE | 2019-01-27 09:45 | MORECARE ---
CASE MANAGEMENT DISCHARGE SUMMARY PATIENT: SHIREEN ROMERO UNIT: [id number] ADM DATE: 01/25/19 AGE: 63 : 57 SEX: F ROOM/BED: D.3870 AUTHOR: TL MAHER PHYSICIAN: REFERRING PHYSICIAN: CESAR TOVAR DO DATE OF SERVICE: 01/27/19 Discharge Plan Patient Name: SHIREEN ROMERO Facility: [facility]:[place] : 1955 Planned Disposition: Home or Self Care Anticipated Discharge Date: Discharge Date: 01/27/2019 Expected LOS: Initial Reviewer: [email or web address] Initial Review Date: 01/25/2019 Generated: 01/27/19 10:44 am Comments DCP- Discharge Planning Updated by [email or web address]: Loretta Mendoza on 01/27/19 8:[address] Patient Name: SHIREEN ROMERO Admission Status: Elective Accout number: [id number] Admission Date: 01-25-2019 : 1955 Admission Diagnosis: Attending: CESAR TOVAR Current LOS: 2 Anticipated DC Date: Planned Disposition: Home or Self Care Primary Insurance: [facility] Discharge Planning Comments: CM met with patient to complete initial dc planning assessment. CM educated patient on the CM role and verbal consent given by patient to complete assessment. Patient lives at home with her granddaughter and son. At discharge patient plans to return home and feels this is a safe discharge. 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 CM discussed availability of home health, rehab services, and medical equipment. Patient would like to do her OP PT at [facility], I have called and made her appointment for Wednesday @ 8:45 am. I spoke with Gen. Patient has her CPM, Ice Machine, walker and BSC that was set up by Dr Tovar. Patient denied known discharge needs at this time. CM will continue to follow and will assist as needed with dc plans/needs. Poultry Boner: Loretta Mendoza DCPIA - Discharge Planning Initial Assessment Updated by [email or web address]: Loretta Mendoza on 01/27/19 9:36 am * Is the patient Alert and Oriented? Yes * How many steps to enter\exit or inside your home? * PCP ABDIRAHMNA * Pharmacy [facility] * Preadmission Environment Home with Family * ADLs Independent * Equipment Bedside Commode Rolling Walker * Other Equipment CPM ICE MACHINE * List name and contact numbers for known caregivers / representatives who currently or will assist patient after discharge: KIARRA (GRANDDAUGHTER) [phone] * Verbal permission to speak to the caregivers and representatives has been obtained from the patient. N/A * Community resources currently utilized None * Additional services required to return to the preadmission environment? Yes * Can the patient safely return to the preadmission environment? Yes * Has this patient been hospitalized within the prior 30 days at any hospital? No Last DP export: 01/27/19 8:38 Patient Name: SHIREEN ROMERO Page [id number] at 0945 All edits/amendments must be made on the electronic document DICTATION DATE: 01/27/19943 ANIMAL CARE SUPERVISOR: ROM 01/27/19943 RPT#: [id number] DC DATE:01/27/19 STATUS: DIS IN [facility] [address] [place] [address] END OF REPORT
--- NOTE | 2019-01-30 13:32 | MORECARE ---
CASE MANAGEMENT DISCHARGE SUMMARY PATIENT: SHIREEN ROMERO UNIT: [id number] ADM DATE: 01/25/19 AGE: 63 : 57 SEX: F ROOM/BED: D.2203 AUTHOR: TL MAHER PHYSICIAN: REFERRING PHYSICIAN: CESAR TOVAR DO DATE OF SERVICE: 01/30/19 Discharge Plan Patient Name: SHIREEN ROMERO Facility: [facility]:[place] : 1955 Planned Disposition: Home or Self Care Anticipated Discharge Date: Discharge Date: 01/27/2019 Expected LOS: Initial Reviewer: [email or web address] Initial Review Date: 01/25/2019 Generated: 01/30/19 2:31 pm Comments DCP- Discharge Planning Updated by [email or web address]: Loretta Mendoza on 01/27/19 8:[address] Patient Name: SHIREEN ROMERO Admission Status: Elective Accout number: [id number] Admission Date: 01-25-2019 : 1955 Admission Diagnosis: Attending: CESAR TOVAR Current LOS: 2 Anticipated DC Date: Planned Disposition: Home or Self Care Primary Insurance: [facility] Discharge Planning Comments: CM met with patient to complete initial dc planning assessment. CM educated patient on the CM role and verbal consent given by patient to complete assessment. Patient lives at home with her granddaughter and son. At discharge patient plans to return home and feels this is a safe discharge. 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 CM discussed availability of home health, rehab services, and medical equipment. Patient would like to do her OP PT at [facility], I have called and made her appointment for Wednesday @ 8:45 am. I spoke with Gen. Patient has her CPM, Ice Machine, walker and BSC that was set up by Dr Tovar. Patient denied known discharge needs at this time. CM will continue to follow and will assist as needed with dc plans/needs. Final Canoe Inspector: Loretta Mendoza DCPIA - Discharge Planning Initial Assessment Updated by [email or web address]: Loretta Mendoza on 01/27/19 9:36 am * Is the patient Alert and Oriented? Yes * How many steps to enter\exit or inside your home? * PCP ABDIRAHMAN * Pharmacy [facility] * Preadmission Environment Home with Family * ADLs Independent * Equipment Bedside Commode Rolling Walker * Other Equipment CPM ICE MACHINE * List name and contact numbers for known caregivers / representatives who currently or will assist patient after discharge: KIARRA (GRANDDAUGHTER) [phone] * Verbal permission to speak to the caregivers and representatives has been obtained from the patient. N/A * Community resources currently utilized None * Additional services required to return to the preadmission environment? Yes * Can the patient safely return to the preadmission environment? Yes * Has this patient been hospitalized within the prior 30 days at any hospital? No Last DP export: 01/27/19 8:45 Patient Name: SHIREEN ROMERO Page [phone] at 1332 All edits/amendments must be made on the electronic document DICTATION DATE: 01/30/19 1331 SOLUTION LEAD: ROM 01/30/19 1331 RPT#: [id number] DC DATE:01/27/19 STATUS: DIS IN [facility] [address] [place] [address] END OF REPORT
== END 2019-01-27 09:44 | disposition home or self-care (01) | DRG 470 ==
LOC: D.SDCHOLD 01-24 07:00 → D.MS 01-25 05:00 → D.SDCHOLD 01-25 07:00 → D.MS 01-25 10:08
PROVIDERS: Internal Medicine Nephrology; ADMIT Orthopaedic Surgery; ATTEND Orthopaedic Surgery
PROC: 0SRD0J9 Replacement of Left Knee Joint with Synthetic Substitute, Cemented, Open Approach (ICD-10-PCS; principal; 2019-01-25 07:00)
DX: M17.12 Unilateral primary osteoarthritis, left knee (principal); D62 Acute posthemorrhagic anemia; E03.9 Hypothyroidism, unspecified; K21.9 Gastro-esophageal reflux disease without esophagitis